=== PATIENT | male | born 1975 | race Two or more races ===

== ENCOUNTER 2024-08-06 03:57 | Emergency (ER) | payer OTHER ==
[~2024-08-06] VITALS: Ht 180.3 cm; Wt 84.0 kg
[2024-08-06] MEDS: KETOROLAC TROMETH 60MG/2ML VIAL IM ONE (04:43)
[2024-08-06 04:51] VITALS: BP 162/110; PULSE 60; RESP 19; TEMP 98.3; O2SAT 98
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
[2024-08-06] MEDS ORDERED: IBUP-1456 PO (05:42)
[2024-08-06] MEDS ORDERED: TIZA-142 PO (05:42)
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
== END 2024-08-06 05:52 | disposition home or self-care (01) ==
LOC: EDBD 03:57 → ER 03:57
DX: S13.4XXA Sprain of ligaments of cervical spine, initial encounter (principal); S09.90XA Unspecified injury of head, initial encounter; G44.311 Acute post-traumatic headache, intractable; H93.11 Tinnitus, right ear; V89.2XXA Person injured in unspecified motor-vehicle accident, traffic, initial encounter; Y93.89 Activity, other specified; Y92.89 Other specified places as the place of occurrence of the external cause; Y99.8 Other external cause status
CPT/HCPCS: 70450; 72125; 72128; 96372; 99285; J1885